=== PATIENT | male | born 2000 | race Caucasian/White ===

== ENCOUNTER 2021-08-19 15:20 | Emergency (ER) | payer BC ==
[~2021-08-19] VITALS: Ht 177.8 cm; Wt 59.1 kg
[2021-08-19 15:44] VITALS: TEMP 98.2
[2021-08-19 16:12] LABS: BASO # 0.1 K/mm3 (0.0-0.2); BASO % 0.7 % (0.0-2.0); EOS % 0.5 % (0-4.0); GRAN # 6.1 K/mm3 (1.4-6.5); HEMATOCRIT 47.7 % (36.0-47.0); HEMOGLOBIN 16.6 g/dl (12.5-16.1); LYMPH # 1.3 K/mm3 (1.2-3.4); LYMPH % 16.5 % (20.0-51.0); MEAN CELL VOLUME 84 fl (80.0-95.0); MEAN CORPUSCULAR HEMOGLOBIN 29 pg (26.0-32.0); MEAN CORPUSCULAR HGB CONC 35 g/dl (33.0-37.0); MEAN PLATELET VOLUME 10.2 fl (7.4-10.4); MONO # 0.5 K/mm3 (0.1-0.6); MONO % 6.1 % (1.7-9.3); PLATELET COUNT 223 K/mm3 (130-400); RED BLOOD COUNT 5.67 M/mm3 (4.20-5.60); REDCELL DISTRIBUTION WIDTH-CV 12.3 % (11.5-14.5)
[2021-08-19 16:37] LABS: ALBUMIN 4.9 gm/dL (3.5-5.0); BILIRUBIN,TOTAL 0.9 mg/dL (0.2-1.2); CALCIUM 10.4 mg/dL (8.4-10.2); CREATININE, serum 1.1 mg/dL (0.72-1.25); POTASSIUM 3.9 mmol/L (3.5-4.5); TOTAL PROTEIN 8.1 gm/dL (6.2-8.1)
[2021-08-19 17:08] VITALS: BP 126/82; PULSE 89
== END 2021-08-19 17:15 | disposition home or self-care (01) ==
LOC: COL.ER 15:20 → EDSEX 15:21 → COL.ER 17:15
PROVIDERS: Emergency Medicine
DX: K92.0 Hematemesis (principal)
CPT/HCPCS: J2405; J7030